=== PATIENT | female | born 1955 | race Caucasian/White ===

== ENCOUNTER → 2018-05-13 15:40 | Outpatient (CLI) | payer BC | END | disposition home or self-care (01) | LOC: D.CT 15:40 | DX: R51 Headache (principal) ==

== ENCOUNTER → 2021-01-29 08:23 | Outpatient (CLI) | payer MEDICARE, OTHER | END | disposition home or self-care (01) | LOC: D.RAD 08:23 | PROVIDERS: ATTEND Family Medicine | DX: R13.10 Dysphagia, unspecified (principal) ==